=== PATIENT | male | born 1975 | race Caucasian/White ===

== ENCOUNTER 2018-04-24 14:42 | Emergency (ER) | payer OTHER, MEDICAID, SELFPAY ==
[2018-04-24 15:18] VITALS: BP 141/90; PULSE 76; RESP 16; TEMP 36.1; O2SAT 97; BMI 33.5
--- NOTE | 2018-04-24 15:19 | DI.RAD.S_ITS ---
PROCEDURE: XR FINGER RT MIN 2V INDICATIONS: pain injury TECHNIQUE: AP hand, 2 views of the right fourth finger(s) acquired. COMPARISON: None. FINDINGS: Bones: Mildly displaced oblique fracture of mid and distal aspects of the middle phalanx of fourth digit. No suspicious bony lesions. Soft tissues: No suspicious soft tissue calcifications. IMPRESSION: 4th digit fracture. Dictated by: Gerry Williamson M.D. on 04/24/2018 at 15:40 Approved by: Gerry Williamson M.D. on 04/24/2018 at 15:42
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
[2018-04-24] MEDS: IBUPROFEN 400 MG TABLET 800 MG PO (17:07)
[2018-04-24 17:40] VITALS: BP 150/96; PULSE 68; RESP 16; O2SAT 100
== END 2018-04-24 17:45 | disposition home or self-care (01) ==
PROVIDERS: Emergency Provider Internal Medicine
DX: S62.604A Fracture of unspecified phalanx of right ring finger, initial encounter for closed fracture (principal); T73.3XXA Exhaustion due to excessive exertion, initial encounter
CPT/HCPCS: 29125; 73140; 99282; 99283

== ENCOUNTER → 2018-08-18 14:53 | Outpatient (CLI) | payer OTHER, MEDICAID, SELFPAY ==
--- NOTE | 2018-08-18 | DI.US.S_ITS ---
LIMITED ULTRASOUND OF LEFT BREAST: 08/18/2018 CLINICAL: Focal left breast pain. No prior exams were available for comparison. Color flow and real-time ultrasound of the left breast retroareolar were performed on the areas of interest. There is an irregular area of flame-shaped fibroglandular tissue with indistinct margins in the left breast central to the nipple in the retroareolar region. This irregular area of fibroglandular tissue is hypoechoic. This correlates with area of clinical concern. Color flow imaging demonstrates that there is vascularity present. IMPRESSION: BENIGN There is no sonographic evidence of malignancy. The irregular area of fibroglandular tissue in the left breast is consistent with gynecomastia and is benign. Correlation is recommended with clinical history as well as clinical followup. This exam was interpreted at Station ID: [id number]. Electronically Signed By: Bhargav Price M.D. ddp/:08/18/2018 17:10:43 letter sent: Clinical Evaluation Ultrasound BI-RADS: 2 Benign
== END ==
PROVIDERS: PCP Family Medicine; Visit Provider Family Medicine
DX: N64.4 Mastodynia (principal); N62 Hypertrophy of breast
CPT/HCPCS: 76642

== ENCOUNTER 2020-05-16 21:58 | Emergency (ER) | payer OTHER, SELFPAY ==
[2020-05-16 22:05] VITALS: BP 144/91; PULSE 89; RESP 15; TEMP 37.3; O2SAT 97; BMI 34.0
[2020-05-16 22:10] VITALS: PULSE 84; O2SAT 97
[2020-05-16 22:30] VITALS: PULSE 81; RESP 18
--- NOTE | 2020-05-16 22:36 | PC.NURSE ---
Pt states took BP today because he was feeling extra tired, states it was high at 156/102, Denies CP or SOB, also reports 2 nights ago had headache which woke him up and recently has had intermittent varicose vein leg pains, denies cardiac hx or hx of HTN. Denies being in pain at present.
[2020-05-16 22:59] VITALS: PULSE 75
[2020-05-16 23:00] VITALS: BP 137/85; PULSE 78; RESP 17
[2020-05-16] MEDS: KETOROLAC 60 MG/2 ML VIAL 15 MG IV (23:16)
[2020-05-16] MEDS: SODIUM CHLORIDE 0.9% 1,000 ML 1000 ML IV (23:17)
[2020-05-16 23:29] LABS: Add Manual Diff / Slide Review NO; Basophils Absolute Auto 100 /uL (0-100); Basophils Percent Auto 1.1 % (0-2); Eosinophils Absolute Auto 200 /uL (0-450); Eosinophils Percent Auto 3.2 % (2-4); Hematocrit 41.3 % (41-53); Hemoglobin 14.3 g/dL (13.5-17.5); Lymphocytes Absolute Auto 1700 /uL (1100-4500); Lymphocytes Percent Auto 29.5 % (25-40); Mean Corpuscular HGB Conc 34.7 % (30-36); Mean Corpuscular Hemoglobin 30.4 PG (26-34); Mean Corpuscular Volume 87.7 fL (80-100); Monocytes Absolute Auto 400 /uL (0-900); Monocytes Percent Auto 6.9 % (3-14); Neutrophils Absolute Auto 3500 /uL (1500-7000); Neutrophils Percent Auto 59.3 % (50-75); Platelet Count 170 X10^3/uL (150-400); Red Blood Cell Count 4.71 X10^6/uL (4.5-5.9); Red Cell Distribution Width 13.8 % (11.6-14.8); White Blood Cell Count 5.9 X10^3/uL (4.5-11.0)
[2020-05-16 23:30] VITALS: BP 138/79; PULSE 71; O2SAT 97
[2020-05-16 23:39] LABS: Alanine Aminotransferase 76 IU/L (<50); Albumin 4.1 g/dL (3.5-5.0); Albumin Globulin Ratio 1.3 (1.0-2.8); Alkaline Phosphatase 78 U/L (38-126); Aspartate Aminotransferase 42 IU/L (17-59); BUN Creatinine Ratio 14.6 (6-22); Bilirubin Total 0.5 mg/dL (0.2-1.3); Blood Urea Nitrogen 18 mg/dL (9-20); Calcium 9.3 mg/dL (8.4-10.2); Carbon Dioxide 33 mmol/L (22-32); Chloride 102 mmol/L (98-107); Estimated Glomerular Filt Rate > 60.0 mL/min (>60); Globulin 3.1 g/dL (1.7-4.1); Glucose 98 mg/dL (70-100); HEMOLYSIS < 15 (0-50); Sodium 139 mmol/L (137-145); Total Protein 7.2 g/dL (6.3-8.2)
[2020-05-16 23:51] LABS: Troponin I < 0.012 ng/mL (0.01-0.034)
[2020-05-17] VITALS: BP 137/77; PULSE 75; O2SAT 98
[2020-05-17 00:30] VITALS: BP 125/71; PULSE 71; O2SAT 97
[2020-05-17 00:47] LABS: COVID19 -Nasal RAPID Negative (Negative)
--- NOTE | 2020-05-17 00:53 | ED.GENADULT ---
HPI - General Adult General Chief complaint: Hypertension Stated complaint: headaches, HBP Time Seen by Provider: 05/16/20 22:22 Source: patient Mode of arrival: Ambulatory Limitations: no limitations History of Present Illness HPI narrative: 44-year-old gentleman with a history of varicose veins in the right leg presents with 3 days of increasing fatigue, headache worse on the left side and now focusing on the occipital region (states he very rarely if ever has headaches), general malaise achiness into his right arm and increasing achiness in fullness into his right leg. With all of these symptoms he checked his blood pressure and found it to be in the 150/90 range and was concerned that the blood pressure was causing symptoms. He denies fever, cough, chills, vomiting although he has been a bit nauseated. No specific abdominal pain or constipation. No palpitations or dyspnea. He describes no light changes and no smell or taste changes. Related Data Allergies Allergy/AdvReac Type Severity Reaction Status Date / Time Penicillins Allergy Verified 04/24/18 16:34 Review of Systems Review of Systems Narrative: Remainder of review of systems including constitutional, ENT, cardiovascular, respiratory, GI, , musculoskeletal, skin, neurologic and psychiatric systems reviewed and are unremarkable except as noted in HPI. Patient History Medical History (Updated 05/17/20 @ 01:04 by Petra Jessica MD) Healthy adult male (Chronic) Social History Smoking Status: Never smoker Smoking Status: Never smoker alcohol intake frequency: a few times a week Substance Use Type: does not use Exam Narrative Exam Narrative: General: Healthy appearing, in no acute distress. Able to give a complete and coherent history. Well-nourished well-developed HEENT: Moist mucous membranes, normal sclera with reactive pupils, Neck: No JVD, supple Respiratory: Lungs are clear to auscultation, no wheezing no rales no rhonchi. Full and symmetrical air movement Cardiac: Regular rate and rhythm no murmurs no bruits Abdomen: Soft nontender good bowel tones, no flank pain Skin: Warm and dry, no rashes Neurologic: Generally fatigued but Grossly neurologically intact with no obvious asymmetries or abnormalities Extremities: No trauma, well perfused Psych: Cooperative, appropriate insight and affect Initial Vital Signs Initial Vital Signs: Vital Signs Temperature 99.1 F 05/16/20 22:05 Pulse Rate 89 05/16/20 22:05 Respiratory Rate 15 05/16/20 22:05 Blood Pressure 144/91 H 05/16/20 22:05 Pulse Oximetry 97 05/16/20 22:05 Scores ABCD2 Citation: Lancet. 2006Oct 03;369(2402):507-84. Validation and refinement of scores to predict very early stroke risk after transient ischaemic attack. Briana SC1, Eula PM, Venkata MN, Carlos Manuel MF, Lidia JS, Sergio AL, Robert S. Course Orders Ordered: ED Orders 05/16/20 23:16 Complete Blood Count AUTO DIFF Stat Comprehensive Metabolic Panel Stat Troponin I Stat 05/17/20 00:18 COVID19 -ED/INPAT/OR/L&D Stat Discontinued Medications Sodium Chloride (Normal Saline 0.9%) 1,000 mls @ 1,000 mls/hr IV BOLUS ONE Stop: 05/17/20 00:06 Last Infusion: 05/17/20 00:18 Dose: 0 mls/hr Documented by: Admin: 05/16/20 23:17 Dose: 1,000 mls/hr Documented by: ALLAN Ketorolac Tromethamine (Toradol) 15 mg IV NOW ONE Stop: 05/16/20 23:08 Last Admin: 05/16/20 23:16 Dose: 15 mg Documented by: ALLAN Vital Signs Vital signs: Vital Signs - 8 hr 05/16/20 22:05 05/16/20 22:10 05/16/20 22:30 Temperature 99.1 F Pulse Rate 89 84 81 Respiratory Rate 15 18 Blood Pressure 144/91 H Pulse Oximetry 97 97 05/16/20 22:59 05/16/20 23:00 05/16/20 23:30 Temperature Pulse Rate 75 78 71 Respiratory Rate 17 Blood Pressure 137/85 138/79 Pulse Oximetry 97 05/17/20 00:00 Temperature Pulse Rate 75 Respiratory Rate Blood Pressure 137/77 Pulse Oximetry 98 Medical Decision Making Medical Records Medical records reviewed: Yes I reviewed the patient's medical records. Lab Data Lab results reviewed: Yes I reviewed the patient's lab results. Result diagrams: 05/16/20 23:16 05/16/20 23:16 Labs: Lab Results 05/16/20 05/16/20 05/16/20 Range/Units 23:10 23:16 23:16 WBC 5.9 (4.5-11.0) X10^3/uL RBC 4.71 (4.5-5.9) X10^6/uL Hgb 14.3 (13.5-17.5) g/dL Hct 41.3 (41-53) % MCV 87.7 (80-100) fL MCH 30.4 (26-34) PG MCHC 34.7 (30-36) % RDW 13.8 (11.6-14.8) % Plt Count 170 (150-400) X10^3/uL Neut % (Auto) 59.3 (50-75) % Lymph % (Auto) 29.5 (25-40) % [place] % (Auto) 6.9 (3-14) % Eos % (Auto) 3.2 (2-4) % Baso % (Auto) 1.1 (0-2) % Neut # (Auto) 3500 (9651-0822) /uL Lymph # (Auto) 1700 (0190-6432) /uL [place] # (Auto) 400 (0-900) /uL Eos # (Auto) 200 (0-450) /uL Baso # (Auto) 100 (0-100) /uL Sodium 139 (137-145) mmol/L Potassium 4.0 (3.4-5.1) mmol/L Chloride 102 (98-107) mmol/L Carbon Dioxide 33 H (22-32) mmol/L BUN 18 (9-20) mg/dL Creatinine 1.23 (0.66-1.25) mg/dL Estimated GFR > 60.0 (>60) mL/min BUN/Creatinine Ratio 14.6 (6-22) Glucose 98 (70-100) mg/dL Calcium 9.3 (8.4-10.2) mg/dL Total Bilirubin 0.5 (0.2-1.3) mg/dL AST 42 (17-59) IU/L ALT 76 H (<50) IU/L Alkaline Phosphatase 78 (38-126) U/L Troponin I < 0.012 (0.01-0.034) ng/mL Total Protein 7.2 (6.3-8.2) g/dL Albumin 4.1 (3.5-5.0) g/dL Globulin 3.1 (1.7-4.1) g/dL Albumin/Globulin Ratio 1.3 (1.0-2.8) COVID-19 PCR Negative (Negative) MDM Narrative Medical decision making narrative: Suspected viral syndrome with general malaise without specific sepsis, sinusitis, pneumonia and he is coronavirus negative today safe for home discharge Discharge Plan Departure Patient Disposition: Home Clinical Impression: Acute viral syndrome Varicose veins of legs Qualifiers: Varicose vein complication: pain Qualified Code(s): I83.813 - Varicose veins of bilateral lower extremities with pain Instructions: DI for Viral Syndrome Activity Restrictions/Additional Instructions: Thank you for coming in today. Your blood work is very reassuring. I suspect that the symptoms that you are having are due to a low-grade virus. We did test for coronavirus, you are negative for this today. Most viruses take 7-10 days and I suspect he will begin to feel better. Using 400 mg of ibuprofen (2 pwxn-cfd-kdpjjyl pills) and 1 Tylenol every 6 hours can be very helpful in controlling pain. For your varicose veins, using compression socks can be very helpful with the deep aching fullness. You may find that the compression socks found in running stores and used by runners are more comfortable and more effective than the medical variety. I would encourage you to follow-up with the physician in [place] regarding surgical repair of the varicose veins. Referrals: Estuardo Lilly MD [Primary Care Provider] -
[2020-05-17 01:00] VITALS: BP 122/64; PULSE 71; O2SAT 98
== END 2020-05-17 01:20 | disposition home or self-care (01) ==
PROVIDERS: Emergency Provider Emergency Medicine; PCP Family Medicine
DX: B34.9 Viral infection, unspecified (principal); I83.813 Varicose veins of bilateral lower extremities with pain; I10 Essential (primary) hypertension; R51 Headache
CPT/HCPCS: 36415; 80053; 84484; 85025; 87635; 96361; 96374; 99284; J1885

== ENCOUNTER 2020-12-24 17:20 | Emergency (ER) | payer OTHER, SELFPAY ==
[2020-12-24 17:27] VITALS: BP 158/86; PULSE 84; RESP 18; TEMP 37; O2SAT 98
--- NOTE | 2020-12-24 18:21 | ED.NEUROSD ---
HPI - Neuro Symptoms/Deficit General Chief Complaint: Extremity Injury, Upper Stated Complaint: Lost Feeling in Ring and Pinky Fingers, Right Hand Time Seen by Provider: 12/24/20 18:14 Source: patient Mode of arrival: Ambulatory Limitations: no limitations History of Present Illness HPI Narrative: 45-year-old male nonsmoker with noncontributory medical history presents with a chief complaint of some numbness and tingling in the 4th and 5th fingers of his right hand. He states that it became present upon waking a few days ago and is largely present. He denies any other neurologic symptoms such as blurred vision or trouble with speech. He denies any dizziness, weakness or lightheadedness. He has had no extremity weakness or ambulation difficulties. He denies any trauma but does work at a desk frequently at work and there is an element of overuse and repetitive motion. He denies any history of neck or shoulder pain or injury Location: right arm History of same: No Severity: mild Quality: numb and tingling Relieving factors: none On Anticoagulants: No Associated symptoms: denies other symptoms Related Data Previous Rx's Medication Instructions Recorded ketorolac 10 mg PO Q6H PRN #14 tab 12/24/20 prednisone See Rx Instructions .ROUTE 12/24/20 .COMPLEX #30 tab Allergies Allergy/AdvReac Type Severity Reaction Status Date / Time Penicillins Allergy Verified 04/24/18 16:34 Review of Systems Constitutional Constitutional: Denies chills, Denies fatigue, Denies fever(s), Denies frequent falls, Denies lethargy and Denies weakness Eyes Eyes: Denies change in vision, Denies eye discharge, Denies irritation and Denies loss of vision ENT Ears, Nose, Mouth, and Throat: Denies change in voice, Denies dizziness, Denies neck pain, Denies sore throat and Denies throat swelling Cardiovascular Cardiovascular: Denies chest pain, Denies irregular heart rhythm, Denies lightheadedness, Denies palpitations, Denies dyspnea, Denies dyspnea on exertion and Denies orthopnea Respiratory Respiratory: Denies cough, Denies dyspnea, Denies dyspnea on exertion and Denies wheezing Gastrointestinal Gastrointestinal: Denies abdominal pain, Denies change in bowel habits, Denies diarrhea, Denies nausea and Denies vomiting Musculoskeletal Musculoskeletal: Denies neck pain and Denies numbness Integumentary/Breasts Skin/Breast: Denies pruritus, Denies erythema, Denies rash and Denies wounds Neurologic Neurologic: Denies behavioral changes, Denies confusion, Denies dizziness, Denies frequent falls, Denies loss of vision, Denies numbness, Reports sensory deficit and Denies weakness Psychiatric Psychiatric: Denies anxiety, Denies behavioral changes, Denies confusion, Denies depression, Denies homicidal ideation and Denies suicidal ideation Endocrine Endocrine: Denies fatigue, Denies flushing and Denies palpitations Hematologic/Lymphatic Hematologic/Lymphatic: Denies easy bruising On Anticoagulants: No Allergic/Immunologic Allergic/Immunologic: Denies urticaria, Denies throat swelling and Denies wheezing Patient History Medical History Healthy adult male Social History Smoking Status: Never smoker Smoking Status: Never smoker alcohol intake frequency: a few times a week Substance Use Type: does not use Exam Narrative Exam Narrative: GENERAL: [ 45] year old patient appears stated age. Well-nourished, well-developed patient, in mild distress. HEAD: Atraumatic. Normocephalic. EYES: Pupils equal round and reactive. Extraocular motions intact. No scleral icterus. No injection or drainage. ENT: Nose without bleeding, purulent drainage. Throat without erythema, tonsillar hypertrophy or exudate. Airway patent. NECK: Trachea midline. Non tender CARDIOVASCULAR: Regular rate and rhythm without murmurs, gallops, or rubs. RESPIRATORY: Clear to auscultation. Breath sounds equal bilaterally. No wheezes, rales, or rhonchi. GASTROINTESTINAL: Abdomen soft, non-tender, nondistended. EXTREMITIES: No edema or joint tenderness. BACK: Nontender without deformity or crepitance. No flank tenderness. NEURO: AOx3. SKIN: No rash or erythema of visible areas NIH Stroke Scale 1a. LOC: Patient is alert and keenly responsive (0) 1b. LOC Questions: Patient answers both LOC questions accurately (0) 1c. LOC Commands: Patient performs both tasks correctly (0) 2. Best Gaze: Normal (0) 3. Visual: No visual loss (0) 4. Facial palsy: Normal symmetrical movements (0) 5. Motor arm: No drift (0) 6. Motor leg: No drift (0) 7. Limb ataxia: Absent (0) 8. Sensory: Normal (0) 9. Best language: No aphasia; normal (0) 10. Dysarthria: Normal (0) 11. Extinction and inattention: No abnormality (0) NIHSS: 0 Initial Vital Signs Initial Vital Signs: Vital Signs Temperature 98.6 F 12/24/20 17:27 Pulse Rate 84 12/24/20 17:27 Respiratory Rate 18 12/24/20 17:27 Blood Pressure 158/86 H 12/24/20 17:27 Pulse Oximetry 98 12/24/20 17:27 Course Vital Signs Vital signs: Vital Signs - 8 hr 12/24/20 17:27 Temperature 98.6 F Pulse Rate 84 Respiratory Rate 18 Blood Pressure 158/86 H Pulse Oximetry 98 MDM - Neuro Symptoms/Deficit MDM Narrative Medical decision making narrative: Patient without any stroke-like symptoms other than some numbness and tingling in the distribution of the ulnar nerve in his right arm. He has no measurable weakness or pain, no change with axial loading of the cervical spine or use of the shoulder girdle. Very stroke considered but thought unlikely given constellation of symptoms and physical exam. Cervical radiculopathy and brachial plexus injury considered but thought unlikely given lack of consistent findings. Extensive return precautions given to the patient's and questions answered to his apparent satisfaction Discharge Plan Departure Patient Disposition: Home Clinical Impression: Ulnar nerve compression Qualifiers: Laterality: right Qualified Code(s): G56.21 - Lesion of ulnar nerve, right upper limb Instructions: DI for Peripheral Neuropathy Activity Restrictions/Additional Instructions: *You have been diagnosed with [ numbness in your fingers most likely from a peripheral nerve compression, perhaps due to overuse. ] *What to do: *Take medications as directed: Prescriptions sent to [facility] in [place] *It will be important for you to connect with the primary care provider. I have included contact information to help get you establish. Please call them tomorrow. *Return to ER if you should have any new, worsening or concerning symptoms, such as [pain, increasing numbness, weakness or tingling or other bothersome symptom] Prescriptions: New prednisone 10 mg tablet See Rx Instructions .Route .COMPLEX Qty: 30 RF: 0 ketorolac 10 mg tablet 10 mg PO Q6H PRN (Reason: pain) Qty: 14 RF: 0 Referrals: [facility] [Outside] Estuardo Lilly MD [Primary Care Provider] -
== END 2020-12-24 18:51 | disposition home or self-care (01) ==
PROVIDERS: Emergency Provider Emergency Medicine; PCP Family Medicine
DX: G56.21 Lesion of ulnar nerve, right upper limb (principal)
CPT/HCPCS: 99281

== ENCOUNTER 2021-05-22 12:43 | Emergency (ER) | payer OTHER, SELFPAY ==
[2021-05-22] VITALS (7 sets, daily range): BP systolic 136–172; BP diastolic 84–101; PULSE 89–105; RESP 15; TEMP 36.8; O2SAT 96–97; BMI 34.7
--- NOTE | 2021-05-22 13:14 | DI.US.S_ITS ---
PROCEDURE: US PERIPH VENOUS LOW EXTREM RT INDICATIONS: PAIN; RECENT TRAVEL TECHNIQUE: Real-time imaging, as well as color and pulse Doppler interrogation, were performed of the lower extremity deep veins from the inguinal ligament to the popliteal fossa. COMPARISON: None. FINDINGS: The common femoral, femoral and popliteal veins are normally compressible, and free of intraluminal thrombus. Color and pulse Doppler demonstrate normal phasic intraluminal flow. There is normal augmentation response to distal compression maneuver. IMPRESSION: Negative for deep venous thrombosis. Dictated by: Amor Canales M.D. on 05/22/2021 at 13:01 Approved by: Amor Canales M.D. on 05/22/2021 at 13:02
--- NOTE | 2021-05-22 13:15 | ED.GENADULT ---
HPI - General Adult General Chief complaint: Extremity Problem,Nontraumatic Stated complaint: Think might have blood clot in lung Time Seen by Provider: 05/22/21 12:51 Source: patient Mode of arrival: Ambulatory History of Present Illness HPI narrative: 45-year-old male. Has never had a blood clot in the past. Is not having chest pain. No shortness of breath. Despite the stated complaint he thinks he may have a blood clot in his right leg not in his lung. He states he did have a recent extended airplane ride and car ride. Afterwards he started having pain in the back of his right knee and also hit the inside of his right leg. He also had cramping in his right calf he was at work today and the symptoms seemed to get little worse so he came to the emergency department for further evaluation. Related Data Previous Rx's Medication Instructions Recorded ketorolac 10 mg tablet 10 mg PO Q6H PRN #14 tab 12/24/20 prednisone 10 mg tablet See Rx Instructions .ROUTE 12/24/20 .COMPLEX #30 tab Allergies Allergy/AdvReac Type Severity Reaction Status Date / Time Penicillins Allergy Verified 05/22/21 13:04 Review of Systems Constitutional Constitutional: Denies fever(s) and Denies headache(s) ENT Ears, Nose, Mouth, and Throat: Denies headache(s) Cardiovascular Cardiovascular: Reports system reviewed and no additional complaints, except as documented Respiratory Respiratory: Reports system reviewed and no additional complaints, except as documented Gastrointestinal Gastrointestinal: Reports system reviewed and no additional complaints, except as documented Musculoskeletal Musculoskeletal: Reports as per HPI Integumentary/Breasts Skin/Breast: Reports system reviewed and no additional complaints, except as documented Neurologic Neurologic: Denies headache(s) Hematologic/Lymphatic On Anticoagulants: No Patient History Medical History Healthy adult male Social History Smoking Status: Never smoker Smoking Status: Never smoker alcohol intake frequency: a few times a week Substance Use Type: does not use Exam Initial Vital Signs Initial Vital Signs: Vital Signs Temperature 98.3 F 05/22/21 12:45 Pulse Rate 101 H 05/22/21 12:45 Respiratory Rate 15 05/22/21 12:45 Blood Pressure 172/97 H 05/22/21 12:45 Pulse Oximetry 96 05/22/21 12:45 Const General: cooperative, comfortable and well developed [facility] Head: normal to inspection and normocephalic Eyes General: appearance normal, both eyes and all related structures Resp Effort & Inspection: normal respiratory effort Auscultation: clear to auscultation bilaterally Cardio Rate: regular rate Rhythm: regular rhythm GI Inspection: normal to inspection Skin General: no rashes or lesions noted Neuro General: patient alert, patient awake, patient oriented x3 and moves all extremities Extrem General: normal to inspection and capillary refill normal Course Orders Ordered: ED Orders 05/22/21 12:54 COVID19 -Nasal swab/Pre-Proc Stat 05/22/21 13:14 US perip venous low extrem rt Stat Vital Signs Vital signs: Vital Signs - 8 hr 05/22/21 12:45 Temperature 98.3 F Pulse Rate 101 H Respiratory Rate 15 Blood Pressure 172/97 H Pulse Oximetry 96 Medical Decision Making Lab Data Labs: Lab Results 05/22/21 Range/Units 12:54 SARS-CoV-2 (PCR) Negative (Negative) Imaging Data US - DVT: Radiologist's Impression: [place] [address] Ultrasound Report Signed Patient: Jonas Pascual MR#: [id number] : 1975 Acct:[id number] Age/Sex: 45 / M Date of Service: 05/22/21 Loc: ED Accession Number: [id number] ?? Procedure: US perip venous low extrem rt Ordering Provider: Estuardo Emanuel D.O. PROCEDURE:? US PERIPH VENOUS LOW EXTREM RT ? INDICATIONS:? PAIN; RECENT TRAVEL ? TECHNIQUE:? Real-time imaging, as well as color and pulse Doppler interrogation, were performed of the lower extremity deep veins from the inguinal ligament to the popliteal fossa.? ? COMPARISON:? None. ? FINDINGS:? The common femoral, femoral and popliteal veins are normally compressible, and free of intraluminal thrombus.? Color and pulse Doppler demonstrate normal phasic intraluminal flow.? There is normal augmentation response to distal compression maneuver. ? ? IMPRESSION:? ? Negative for deep venous thrombosis. ? ? Dictated by: Amor Canales M.D. on 05/22/2021 at 13:01 ? ? Approved by: Amor Canales M.D. on 05/22/2021 at 13:02? [facility] Narrative Medical decision making narrative: Patient is neurovascularly intact. Not hypoxic. Not tachypneic. No chest pain. No shortness of breath. Ultrasound does not show any signs of a DVT. Low suspicion for cellulitis. COVID is negative. Discussed all this with the patient. Do suspect musculoskeletal most likely from his in activity given the airplane rides. He was given return precautions and follow-up instructions. He expressed understanding and agreement. Discharge Plan Departure Patient Disposition: Home Clinical Impression: Pain in right leg Activity Restrictions/Additional Instructions: The ultrasound today did not show any signs of a blood clot. Your COVID test was also negative. I suspect the symptoms you are having is most likely related to the in activity from the long car rides and airplane rides recently. Contact your primary doctor for follow-up. Return to the emergency department for any new or worsening symptoms Prescriptions: No Action prednisone 10 mg tablet See Rx Instructions .Route .COMPLEX Qty: 30 RF: 0 ketorolac 10 mg tablet 10 mg PO Q6H PRN (Reason: pain) Qty: 14 RF: 0 Referrals: Estuardo Lilly MD [Primary Care Provider] -
[2021-05-22 13:25] LABS: COVID19 -Nasal RAPID Negative (Negative)
== END 2021-05-22 14:25 | disposition home or self-care (01) ==
PROVIDERS: Emergency Provider Emergency Medicine; PCP Family Medicine
DX: M79.661 Pain in right lower leg (principal); Z20.822 Contact with and (suspected) exposure to COVID-19
CPT/HCPCS: 87635; 93971; 99283; C9803

== ENCOUNTER 2022-03-12 12:22 | Emergency (ER) | payer OTHER, SELFPAY ==
[2022-03-12 12:27] VITALS: BP 140/84; PULSE 66; RESP 16; TEMP 36.3; O2SAT 99; BMI 35.0
--- NOTE | 2022-03-12 12:53 | DI.CT.S_ITS ---
PROCEDURE: CT KIDNEY URETER BLADDER (KUB) INDICATIONS: left flank pain TECHNIQUE: Axial sections were acquired from the lung bases to the pubic symphysis. Coronal and sagittal reformats were performed. For radiation dose reduction, the following was used: automated exposure control, adjustment of mA and/or kV according to patient size. COMPARISON: None. FINDINGS: Image quality: Excellent. Lung bases: Unremarkable. Small hiatal hernia. Heart: No significant findings. URINARY: Right Kidney: No stones or hydronephrosis. Right Ureter: No hydroureter. Left Kidney: Mild left hydronephrosis with perinephric stranding. No kidney stones. Left Ureter: There is a 3 mm stone in the distal left ureter at the UVJ. Mild hydroureter and periureteral stranding. Bladder: Normal wall thickness. No stones. ABDOMEN: Liver: Normal size. Hepatic steatosis. Gallbladder: Unremarkable. Biliary ducts: Unremarkable. Pancreas: Unremarkable. Spleen: Unremarkable. Adrenal Glands: Unremarkable. Stomach and Bowel: Stomach, small bowel loops, and colon are unremarkable. Normal appendix. Peritoneum: No abnormal intraperitoneal fluid. No free air. Ventral Wall: No hernia. Abdominal Nodes: No enlarged retroperitoneal or mesenteric lymph nodes. Vessels: Aorta and inferior vena cava are normal in size. PELVIS: Pelvic Organs: Unremarkable. Pelvic Nodes: Unremarkable. Miscellaneous: No inguinal hernias are seen. Bones: Moderate degenerative disc disease at L4-L5 and mild degenerative disease at other levels. Mild degenerative facet arthropathy bilaterally at L3-L4, L4-L5 and L5-S1. IMPRESSION: 1. There is a 3 mm obstructive stone at the left UVJ. There is mild left hydronephrosis and perinephric stranding. 2. No other renal stones. 3. Hepatic steatosis. Dictated by: Jono Bassett M.D. on 03/12/2022 at 13:53 Approved by: Jono Bassett M.D. on 03/12/2022 at 14:03
[2022-03-12 12:54] LABS: Add Manual Diff / Slide Review NO; Basophils Absolute Auto 0 /uL (0-100); Basophils Percent Auto 0.7 % (0-2); Eosinophils Absolute Auto 0 /uL (0-450); Eosinophils Percent Auto 0.6 % (2-4); Hematocrit 44.9 % (41-53); Hemoglobin 15.5 g/dL (13.5-17.5); Lymphocytes Absolute Auto 700 /uL (1100-4500); Lymphocytes Percent Auto 11.9 % (25-40); Mean Corpuscular HGB Conc 34.4 % (30-36); Mean Corpuscular Hemoglobin 30.2 PG (26-34); Mean Corpuscular Volume 87.7 fL (80-100); Monocytes Absolute Auto 300 /uL (0-900); Monocytes Percent Auto 4.6 % (3-14); Neutrophils Absolute Auto 5100 /uL (1500-7000); Neutrophils Percent Auto 82.2 % (50-75); Platelet Count 187 X10^3/uL (150-400); Red Blood Cell Count 5.12 X10^6/uL (4.5-5.9); Red Cell Distribution Width 13.9 % (11.6-14.8); White Blood Cell Count 6.2 X10^3/uL (4.5-11.0)
[2022-03-12 13:03] LABS: COVID19 -Nasal RAPID Negative (Negative)
[2022-03-12 13:05] LABS: Alanine Aminotransferase 129 IU/L (<50); Albumin 4.6 g/dL (3.5-5.0); Albumin Globulin Ratio 1.3 (1.0-2.8); Alkaline Phosphatase 99 U/L (38-126); Aspartate Aminotransferase 71 IU/L (17-59); BUN Creatinine Ratio 13.6 (6-22); Bilirubin Total 0.7 mg/dL (0.2-1.3); Blood Urea Nitrogen 18 mg/dL (9-20); Calcium 8.9 mg/dL (8.4-10.2); Carbon Dioxide 29 mmol/L (22-32); Chloride 103 mmol/L (98-107); Estimated Glomerular Filt Rate > 60 mL/min (>60); Globulin 3.5 g/dL (1.7-4.1); Glucose 166 mg/dL (70-100); HEMOLYSIS < 15 (0-50); Lipase 118 U/L (23-300); Potassium 4.4 mmol/L (3.4-5.1); Sodium 140 mmol/L (137-145); Total Protein 8.1 g/dL (6.3-8.2)
[2022-03-12] MEDS: KETOROLAC 30 MG/ML VIAL 15 MG IV (13:07)
[2022-03-12] MEDS: ONDANSETRON 4 MG/2 ML INJ IV (13:07)
[2022-03-12] MEDS: HYDROMORPHONE 0.5 MG INJ IV (13:08)
[2022-03-12] MEDS: SODIUM CHLORIDE 0.9% 1,000 ML 1000 ML IV (13:08)
--- NOTE | 2022-03-12 13:16 | ED_ITS ---
HPI - Abdominal Pain <JERMAN Duron - Last Filed: 03/12/22 14:31> General Chief Complaint: Abdominal Pain Stated Complaint: stated possile kidney stone Time Seen by Provider: 03/12/22 12:45 Source: patient Mode of arrival: Wheelchair History of Present Illness HPI narrative: This is a 45-year-old male who presents to the emergency department complaining of left lower quadrant pain and pain out of proportion with a gradual onset that started last night. Patient states he has been sweating and feeling significant pain, endorses having normal bowel movement this morning which was not painful. He denies any nausea vomiting, denies any other abdominal pain. Denies any urinary complaints, dysuria, flank pain penile discharge or other. Patient endorses feeling poorly since last night, denies any recent illness, sore throat, chest pain, dizziness, shortness of breath, or blood in his urine or stool. Related Data Previous Rx's Medication Instructions Recorded ketorolac 10 mg tablet 10 mg PO Q6H PRN pain #14 tabs 12/24/20 prednisone 10 mg tablet See Rx Instructions .Route 12/24/20 .COMPLEX #30 tabs ondansetron 4 mg disintegrating 4 mg PO Q8H PRN nausea and 03/12/22 tablet vomiting #10 tabs oxycodone-acetaminophen 5 mg-325 1 tab PO Q8H PRN pain #14 tabs 03/12/22 mg tablet (Percocet) tamsulosin 0.4 mg capsule 0.4 mg PO DAILY 2 weeks #14 caps 03/12/22 Allergies Allergy/AdvReac Type Severity Reaction Status Date / Time Penicillins Allergy Verified 03/12/22 12:36 Review of Systems <JERMAN Duron - Last Filed: 03/12/22 14:31> Review of Systems Narrative: General: denies fever, chills, malaise, endorses sweats and fatigue Head/Neck: denies headache, neck pain, dizziness Eyes: denies visual changes, eye pain Cardio: denies chest pain, palpitations, edema Respiratory: denies dyspnea, cough, orthopnea GI: Endorses left lower quadrant abdominal pain, nausea, vomiting, or diarrhea, denies any painful bowel movements, denies any blood in his stool : denies dysuria, hematuria, urinary retention, frequency or incontinence MSK: denies joint pain, muscle weakness Skin: denies rash, itching, skin lesions or other Neuro: denies numbness, tingling Patient History <JERMAN Duron - Last Filed: 03/12/22 14:31> Medical History Healthy adult male Social History Smoking Status: Never smoker Smoking Status: Never smoker alcohol intake frequency: a few times a week Substance Use Type: does not use Exam <JERMAN Duron - Last Filed: 03/12/22 14:31> Narrative Exam Narrative: Independently reviewed vitals signs and nursing notes. General: Awake, alert, nontoxic, no cardiorespiratory distress Head/Neck: Atraumatic, neck supple Eyes: EOMI, conjunctiva normal Nose: nares patent, no rhinorrhea Mouth/Throat: moist mucus membranes, posterior pharynx without erythema or lesion Cardio: Regular rate and rhythm, no peripheral edema Respiratory: respirations unlabored without wheezing, stridor, or rales. No retractions, hypoxia or tachypnea GI: Abdomen soft, nontender to palpation x4 quadrants, no guarding or rebound tenderness, significant left CVA tenderness, no tenderness on right MSK: Moves all extremities, neurovascularly intact, range of motion without deficit Skin: Normal capillary refill, no rash Neuro: Normal speech and cognition, normal gait Initial Vital Signs Initial Vital Signs: Vital Signs Temperature 97.4 F L 03/12/22 12:27 Pulse Rate 66 03/12/22 12:27 Respiratory Rate 16 03/12/22 12:27 Blood Pressure 140/84 03/12/22 12:27 Pulse Oximetry 99 03/12/22 12:27 Oxygen Delivery Method 03/12/22 12:27 <Jermain Chavez MD - Last Filed: 03/20/22 03:42> Initial Vital Signs Initial Vital Signs: Vital Signs Temperature 97.4 F L 03/12/22 12:27 Pulse Rate 66 03/12/22 12:27 Respiratory Rate 16 03/12/22 12:27 Blood Pressure 140/84 03/12/22 12:27 Pulse Oximetry 99 03/12/22 12:27 Oxygen Delivery Method 03/12/22 12:27 Course <JERMAN Duron - Last Filed: 03/12/22 14:31> Orders Ordered: Discontinued Medications Hydromorphone HCl (Hydromorphone 0.5 Mg Inj) 0.5 mg IV NOW ONE Stop: 03/12/22 12:51 Last Admin: 03/12/22 13:08 Dose: 0.5 mg Documented By: MARC Sodium Chloride (Normal Saline 0.9%) 1,000 mls @ 1,000 mls/hr IV BOLUS ONE Stop: 03/12/22 13:49 Last Infusion: 03/12/22 14:36 Dose: 0 mls/hr Documented By: Admin: 03/12/22 13:08 Dose: 1,000 mls/hr Documented By: MARC Ketorolac Tromethamine (Ketorolac 30 Mg/Ml Vial) 15 mg IV NOW ONE Stop: 03/12/22 12:51 Last Admin: 03/12/22 13:07 Dose: 15 mg Documented By: MARC Ondansetron HCl (Ondansetron 4 Mg/2 Ml Inj) 4 mg IV NOW ONE Stop: 03/12/22 12:53 Last Admin: 03/12/22 13:07 Dose: 4 mg Documented By: MARC Tamsulosin HCl (Tamsulosin 0.4 Mg Capsule) 0.4 mg PO NOW ONE Stop: 03/12/22 13:13 Last Admin: 03/12/22 14:13 Dose: 0.4 mg Documented By: MARC Vital Signs Vital signs: Vital Signs - 8 hr 03/12/22 12:27 Temperature 97.4 F L Pulse Rate 66 Respiratory Rate 16 Blood Pressure 140/84 Pulse Oximetry 99 Oxygen Delivery Method Room Air <Jermain Chavez MD - Last Filed: 03/20/22 03:42> Orders Ordered: Discontinued Medications Hydromorphone HCl (Hydromorphone 0.5 Mg Inj) 0.5 mg IV NOW ONE Stop: 03/12/22 12:51 Last Admin: 03/12/22 13:08 Dose: 0.5 mg Documented By: MARC Sodium Chloride (Normal Saline 0.9%) 1,000 mls @ 1,000 mls/hr IV BOLUS ONE Stop: 03/12/22 13:49 Last Infusion: 03/12/22 14:36 Dose: 0 mls/hr Documented By: Admin: 03/12/22 13:08 Dose: 1,000 mls/hr Documented By: MARC Ketorolac Tromethamine (Ketorolac 30 Mg/Ml Vial) 15 mg IV NOW ONE Stop: 03/12/22 12:51 Last Admin: 03/12/22 13:07 Dose: 15 mg Documented By: MARC Ondansetron HCl (Ondansetron 4 Mg/2 Ml Inj) 4 mg IV NOW ONE Stop: 03/12/22 12:53 Last Admin: 03/12/22 13:07 Dose: 4 mg Documented By: MARC Tamsulosin HCl (Tamsulosin 0.4 Mg Capsule) 0.4 mg PO NOW ONE Stop: 03/12/22 13:13 Last Admin: 03/12/22 14:13 Dose: 0.4 mg Documented By: MARC Vital Signs Vital signs: Vital Signs - 8 hr 03/12/22 12:27 Temperature 97.4 F L Pulse Rate 66 Respiratory Rate 16 Blood Pressure 140/84 Pulse Oximetry 99 Oxygen Delivery Method Room Air MDM - Abdominal Pain <RHONDA DuronP - Last Filed: 03/12/22 14:31> Lab Data Result diagrams: 03/12/22 12:51 03/12/22 12:51 Labs: Lab Results 03/12/22 03/12/22 03/12/22 Range/Units 12:40 12:51 12:51 WBC 6.2 (4.5-11.0) X10^3/uL RBC 5.12 (4.5-5.9) X10^6/uL Hgb 15.5 (13.5-17.5) g/dL Hct 44.9 (41-53) % MCV 87.7 (80-100) fL MCH 30.2 (26-34) PG MCHC 34.4 (30-36) % RDW 13.9 (11.6-14.8) % Plt Count 187 (150-400) X10^3/uL Neut % (Auto) 82.2 H (50-75) % Lymph % (Auto) 11.9 L (25-40) % [place] % (Auto) 4.6 (3-14) % Eos % (Auto) 0.6 L (2-4) % Baso % (Auto) 0.7 (0-2) % Neut # (Auto) 5100 (4321-1129) /uL Lymph # (Auto) 700 L (0898-8774) /uL [place] # (Auto) 300 (0-900) /uL Eos # (Auto) 0 (0-450) /uL Baso # (Auto) 0 (0-100) /uL Sodium 140 (137-145) mmol/L Potassium 4.4 (3.4-5.1) mmol/L Chloride 103 (98-107) mmol/L Carbon Dioxide 29 (22-32) mmol/L BUN 18 (9-20) mg/dL Creatinine 1.32 H (0.66-1.25) mg/dL Estimated GFR > 60 (>60) mL/min BUN/Creatinine Ratio 13.6 (6-22) Glucose 166 H (70-100) mg/dL Calcium 8.9 (8.4-10.2) mg/dL Total Bilirubin 0.7 (0.2-1.3) mg/dL AST 71 H (17-59) IU/L ALT 129 H (<50) IU/L Alkaline Phosphatase 99 (38-126) U/L Total Protein 8.1 (6.3-8.2) g/dL Albumin 4.6 (3.5-5.0) g/dL Globulin 3.5 (1.7-4.1) g/dL Albumin/Globulin Ratio 1.3 (1.0-2.8) Lipase 118 (23-300) U/L Ur Bilirubin Confirm (Negative) Urine RBC (0-5/HPF) Urine WBC (0-5/HPF) Urine Bacteria (None) Ur Culture Indicated? SARS-CoV-2 (PCR) Negative (Negative) 03/12/22 03/12/22 Range/Units 13:17 13:17 WBC (4.5-11.0) X10^3/uL RBC (4.5-5.9) X10^6/uL Hgb (13.5-17.5) g/dL Hct (41-53) % MCV (80-100) fL MCH (26-34) PG MCHC (30-36) % RDW (11.6-14.8) % Plt Count (150-400) X10^3/uL Neut % (Auto) (50-75) % Lymph % (Auto) (25-40) % [place] % (Auto) (3-14) % Eos % (Auto) (2-4) % Baso % (Auto) (0-2) % Neut # (Auto) (2636-3318) /uL Lymph # (Auto) (5949-9356) /uL [place] # (Auto) (0-900) /uL Eos # (Auto) (0-450) /uL Baso # (Auto) (0-100) /uL Sodium (137-145) mmol/L Potassium (3.4-5.1) mmol/L Chloride (98-107) mmol/L Carbon Dioxide (22-32) mmol/L BUN (9-20) mg/dL Creatinine (0.66-1.25) mg/dL Estimated GFR (>60) mL/min BUN/Creatinine Ratio (6-22) Glucose (70-100) mg/dL Calcium (8.4-10.2) mg/dL Total Bilirubin (0.2-1.3) mg/dL AST (17-59) IU/L ALT (<50) IU/L Alkaline Phosphatase (38-126) U/L Total Protein (6.3-8.2) g/dL Albumin (3.5-5.0) g/dL Globulin (1.7-4.1) g/dL Albumin/Globulin Ratio (1.0-2.8) Lipase (23-300) U/L Ur Bilirubin Confirm Negative (Negative) Urine RBC 5-10/hpf H (0-5/HPF) Urine WBC None seen (0-5/HPF) Urine Bacteria None seen (None) Ur Culture Indicated? Cult not indicated SARS-CoV-2 (PCR) (Negative) Point of care testing: Urine Dip Bedside Urine Glucose Negative Bedside Urine Bilirubin ++ 2 Bedside Urine Ketone +/- 5 Urine Specific [place] 1.030 Bedside Urine Occult Blood +++ Bedside Urine pH 5.5 Bedside Urine Protein +/- 15 Bedside Urine Urobilinogen +/- 1mg Bedside Urine Nitrite - Negative Bedside Urine Leukocytes - Negative Esterase Imaging Data CT scan - abdomen/pelvis: Radiologist's Impression: PROCEDURE:? CT KIDNEY URETER BLADDER (KUB) ? INDICATIONS:? left flank pain ? TECHNIQUE:? Axial sections were acquired from the lung bases to the pubic symphysis.? Coronal and sagittal reformats were performed.? For radiation dose reduction, the following was used: ?automated exposure control, adjustment of mA and/or kV according to patient size.? ? COMPARISON:? None. ? FINDINGS:? Image quality:? Excellent.? ? Lung bases:? Unremarkable. ? Small hiatal hernia.? Heart:? No significant findings. ? URINARY: Right Kidney: ? No stones or hydronephrosis.? Right Ureter:? No hydroureter.? ? Left Kidney:? Mild left hydronephrosis with perinephric stranding.? No kidney stones. Left Ureter:? There is a 3 mm stone in the distal left ureter at the UVJ.? Mild hydroureter and periureteral stranding.? ? Bladder:? Normal wall thickness. No stones. ? ? ? ABDOMEN: Liver:? Normal size.? Hepatic steatosis.? ? Gallbladder:? Unremarkable.? ? Biliary ducts:? Unremarkable.? ? Pancreas:? Unremarkable.? ? Spleen:? Unremarkable.? ? Adrenal Glands:? Unremarkable.? ? ? Stomach and Bowel:? Stomach, small bowel loops, and colon are unremarkable.? Normal appendix. Peritoneum:? No abnormal intraperitoneal fluid.? No free air.? ? Ventral Wall: ? No hernia.? Abdominal Nodes:? No enlarged retroperitoneal or mesenteric lymph nodes.? Vessels:? Aorta and inferior vena cava are normal in size.? ? PELVIS: Pelvic Organs:? Unremarkable.? ? Pelvic Nodes: Unremarkable. Miscellaneous: No inguinal hernias are seen. ? ? ? Bones:? Moderate degenerative disc disease at L4-L5 and mild degenerative disease at other levels.? Mild degenerative facet arthropathy bilaterally at L3-L4, L4-L5 and L5-S1. ? ? IMPRESSION:? ? 1.? There is a 3 mm obstructive stone at the left UVJ.? There is mild left hydronephrosis and perinephric stranding. ? 2. No other renal stones. ? 3. Hepatic steatosis.? ? ? Dictated by: Jono Bassett M.D. on 03/12/2022 at 13:53 ? ? Approved by: Jono Bassett M.D. on 03/12/2022 at 14:03 ? MDM Narrative Medical decision making narrative: This is a 46-year-old male who presents to the emergency department left-sided lower quadrant pain which started last night, he was diaphoretic on his arrival, denies any nausea, vomiting, or painful bowel movements. Denies any history of this in the past. He had left-sided CVA tenderness but no tenderness palpation of his left lower quadrant, abdomen pelvis CT KUB shows a 3 mm obstructive stone at the left UVJ with associated mild hydronephrosis and perinephric stranding, no other renal stones, and hepatic steatosis. His lab work does not show any leukocytosis, creatinine is slightly elevated above baseline at 1.32, baseline is 1.23. GFR over 60, AST is elevated at 71 compared with 42 in 2020, ALT is elevated at 129, compared with seven six on prior urine microscopy shows RBCs without bacteria or white blood cells. His COVID PCR was negative. Patient was given 1 L of normal saline, 0.5 mg of hydromorphone, 15 mg IV ketorolac with resolution of his pain and did not have any nausea vomiting. He was given Zofran because he was diaphoretic and there was concern for possible vomiting. Patient is afebrile, without tachycardia, tachypnea his pain is under control, he is voiding and he was started on tamsulosin and 1st dose was given in the emergency department. Urologic Consultation was placed for Dr. Parker who is on- call, patient understands to follow-up with him and will be using a urine strainer to strain his urine, taking Flomax for the next two weeks or until he passes his stone, understands to stay hydrated, and use Toradol every 8 hours as needed for pain with food and water. Patient understands strict return precautions and will return to the ER if his pain is not under control. No peritoneal signs on abdominal exam. Patient remains p.o. tolerant. Serial abdominal exam without increase in abdominal pain. Given history and exam, low suspicion for acute abdominal process, such as acute cholecystitis, pancreatitis, perforated viscus, atypical appendicitis, colitis, diverticulitis or torsion. Extensive conversation about ER return precautions and need for close follow-up. Patient is appropriate and amenable to discharge home. Vital signs are stable on repeat examination is unremarkable. Patient has been informed of results. Patient has been given strict return to ER precautions for any new or worsening symptoms. Patient understands to follow up closely with outpatient providers as instructed. Patient understands plan and agrees to discharge home. All questions and concerns answered at this time. <Jermain Chavez MD - Last Filed: 03/20/22 03:42> Lab Data Labs: Lab Results 03/12/22 03/12/22 03/12/22 Range/Units 12:40 12:51 12:51 WBC 6.2 (4.5-11.0) X10^3/uL RBC 5.12 (4.5-5.9) X10^6/uL Hgb 15.5 (13.5-17.5) g/dL Hct 44.9 (41-53) % MCV 87.7 (80-100) fL MCH 30.2 (26-34) PG MCHC 34.4 (30-36) % RDW 13.9 (11.6-14.8) % Plt Count 187 (150-400) X10^3/uL Neut % (Auto) 82.2 H (50-75) % Lymph % (Auto) 11.9 L (25-40) % [place] % (Auto) 4.6 (3-14) % Eos % (Auto) 0.6 L (2-4) % Baso % (Auto) 0.7 (0-2) % Neut # (Auto) 5100 (7345-4029) /uL Lymph # (Auto) 700 L (8009-7407) /uL [place] # (Auto) 300 (0-900) /uL Eos # (Auto) 0 (0-450) /uL Baso # (Auto) 0 (0-100) /uL Sodium 140 (137-145) mmol/L Potassium 4.4 (3.4-5.1) mmol/L Chloride 103 (98-107) mmol/L Carbon Dioxide 29 (22-32) mmol/L BUN 18 (9-20) mg/dL Creatinine 1.32 H (0.66-1.25) mg/dL Estimated GFR > 60 (>60) mL/min BUN/Creatinine Ratio 13.6 (6-22) Glucose 166 H (70-100) mg/dL Calcium 8.9 (8.4-10.2) mg/dL Total Bilirubin 0.7 (0.2-1.3) mg/dL AST 71 H (17-59) IU/L ALT 129 H (<50) IU/L Alkaline Phosphatase 99 (38-126) U/L Total Protein 8.1 (6.3-8.2) g/dL Albumin 4.6 (3.5-5.0) g/dL Globulin 3.5 (1.7-4.1) g/dL Albumin/Globulin Ratio 1.3 (1.0-2.8) Lipase 118 (23-300) U/L Ur Bilirubin Confirm (Negative) Urine RBC (0-5/HPF) Urine WBC (0-5/HPF) Urine Bacteria (None) Ur Culture Indicated? SARS-CoV-2 (PCR) Negative (Negative) 03/12/22 03/12/22 Range/Units 13:17 13:17 WBC (4.5-11.0) X10^3/uL RBC (4.5-5.9) X10^6/uL Hgb (13.5-17.5) g/dL Hct (41-53) % MCV (80-100) fL MCH (26-34) PG MCHC (30-36) % RDW (11.6-14.8) % Plt Count (150-400) X10^3/uL Neut % (Auto) (50-75) % Lymph % (Auto) (25-40) % [place] % (Auto) (3-14) % Eos % (Auto) (2-4) % Baso % (Auto) (0-2) % Neut # (Auto) (7081-7528) /uL Lymph # (Auto) (5520-9483) /uL [place] # (Auto) (0-900) /uL Eos # (Auto) (0-450) /uL Baso # (Auto) (0-100) /uL Sodium (137-145) mmol/L Potassium (3.4-5.1) mmol/L Chloride (98-107) mmol/L Carbon Dioxide (22-32) mmol/L BUN (9-20) mg/dL Creatinine (0.66-1.25) mg/dL Estimated GFR (>60) mL/min BUN/Creatinine Ratio (6-22) Glucose (70-100) mg/dL Calcium (8.4-10.2) mg/dL Total Bilirubin (0.2-1.3) mg/dL AST (17-59) IU/L ALT (<50) IU/L Alkaline Phosphatase (38-126) U/L Total Protein (6.3-8.2) g/dL Albumin (3.5-5.0) g/dL Globulin (1.7-4.1) g/dL Albumin/Globulin Ratio (1.0-2.8) Lipase (23-300) U/L Ur Bilirubin Confirm Negative (Negative) Urine RBC 5-10/hpf H (0-5/HPF) Urine WBC None seen (0-5/HPF) Urine Bacteria None seen (None) Ur Culture Indicated? Cult not indicated SARS-CoV-2 (PCR) (Negative) Point of care testing: Urine Dip Bedside Urine Glucose Negative Bedside Urine Bilirubin ++ 2 Bedside Urine Ketone +/- 5 Urine Specific [place] 1.030 Bedside Urine Occult Blood +++ Bedside Urine pH 5.5 Bedside Urine Protein +/- 15 Bedside Urine Urobilinogen +/- 1mg Bedside Urine Nitrite - Negative Bedside Urine Leukocytes - Negative Esterase Discharge Plan Departure Patient Disposition: Home Clinical Impression: Calculus of ureterovesical junction (UVJ) Instructions: Kidney Stones -- Adult Activity Restrictions/Additional Instructions: *You have been diagnosed with a 3 mm left-sided kidney stone in the UVJ junction. You have swelling of the left kidney and left ureter on CT scan. An ti-inflammatories like Toradol helped to reduce inflammation to allow this to flow again, combined with Flomax, this will help dilate the ureter so that you can pass the stone. Please stay hydrated, this will likely pass within the next 24 hours but may take longer. Possible that able to pass as well, and then you would need more urgent follow-up or return to the emergency department if you cannot get your pain under control. Please do not go back to work until you know that you are getting better. Follow-up with Dr. Parker, he is local and on- call for Urology. *What to do: *Please continue to take your regular medications as directed. [ x] New medication prescriptions sent to your pharmacy: [ [facility]] [ ] New medication written as a paper prescription [ ] No new medications given *Please follow up with your primary care provider in 2-3 days, call for an appointment. Let them know you were seen in the Emergency Department and that we asked that you be seen for follow-up. We will electronically transmit a record of today's note if your PCP is in our system *If you do not have a primary care provider please contact [phone] to establish care with one of the [facility] primary care providers. *Return to Emergency Department if you should have any new, worsening or concerning symptoms, such as [fever greater than 101F, chills, worsening pain, persistent vomiting or other bothersome symptoms] Prescriptions: New ondansetron 4 mg tablet,disintegrating 4 mg PO Q8H PRN (Reason: nausea and vomiting) Qty: 10 0RF tamsulosin 0.4 mg capsule 0.4 mg PO DAILY 14 Days Qty: 14 0RF oxycodone-acetaminophen [Percocet] 5-325 mg tablet 1 tab PO Q8H PRN (Reason: pain) Qty: 14 0RF No Action prednisone 10 mg tablet See Rx Instructions .Route .COMPLEX Qty: 30 0RF Rx Instructions: Day 1,2,3: 40mg PO Daily Day 4,5,6: 30mg PO Daily Day 7,8,9: 20mg PO Daily Day 10,11,12: 10mg PO Daily #30 ketorolac 10 mg tablet 10 mg PO Q6H PRN (Reason: pain) Qty: 14 0RF Referrals: Estuardo Lilly MD [Primary Care Provider] - Jermain Parker MD [Physician] - Visit Report Forms: Patient Portal/API <Jermain Chavez MD - Last Filed: 03/20/22 03:42> Cosign ED Attending Jaden Attestation: I was immediately available in the department for consultation. This documentation has been reviewed and I agree with assessment and plan. Supervised by Jermain Chavez MD
[2022-03-12 13:25] VITALS: PULSE 65; O2SAT 93
[2022-03-12 13:30] VITALS: PULSE 67; O2SAT 95
[2022-03-12 13:31] VITALS: BP 150/104; PULSE 66; O2SAT 95
[2022-03-12 13:39] LABS: Ictotest Urine Negative (Negative)
[2022-03-12 13:42] LABS: RBC Urine 5-10/HPF (0-5/HPF); WBC Urine None Seen (0-5/HPF)
[2022-03-12 13:43] LABS: Bacteria Urine None Seen; Culture Indicated Urine Cult Not Indicated
[2022-03-12 14:00] VITALS: PULSE 67; O2SAT 97
[2022-03-12 14:01] VITALS: BP 138/84; PULSE 67; O2SAT 97
[2022-03-12] MEDS: TAMSULOSIN 0.4 MG CAPSULE PO (14:13)
== END 2022-03-12 14:37 | disposition home or self-care (01) ==
PROVIDERS: Emergency Medicine; Emergency Provider Nurse Practitioner Critical Care Medicine; PCP Family Medicine
DX: N20.1 Calculus of ureter (principal); Z20.822 Contact with and (suspected) exposure to COVID-19
CPT/HCPCS: 36415; 74176; 80053; 81003; 81015; 83690; 85025; 87086; 87635; 96361; 96374; 96375; 99284; C9803; J1170; J1885; J2405